=== PATIENT | female | born 1995 | race American Indian/Alaskan Native ===

== ENCOUNTER 2018-08-08 19:47 | Outpatient (CLI) | payer OTHER | END 2018-08-09 00:39 | disposition HB | LOC: OBS/DEL 19:47 | DX: O76 Abnormality in fetal heart rate and rhythm complicating labor and delivery (principal); Z34.02 Encounter for supervision of normal first pregnancy, second trimester ==

== ENCOUNTER 2018-08-19 18:51 | Outpatient (CLI) | payer OTHER ==
[2018-08-19] MEDS ORDERED: PRENATAL TABLE1 EAC1 PO (19:35)
== END 2018-08-20 11:23 | disposition home or self-care (01) ==
LOC: OBS/DEL 18:51
DX: O23.43 Unspecified infection of urinary tract in pregnancy, third trimester (principal); O47.1 False labor at or after 37 completed weeks of gestation; Z34.03 Encounter for supervision of normal first pregnancy, third trimester

== ENCOUNTER 2018-10-17 11:25 | Inpatient (IN) | payer OTHER ==
[~2018-10-17] VITALS: Ht 160 cm; Wt 54.9 kg
[~2018-10-17 11:25] MED LIST: PRENATAL TABLE1 EAC1 PO
== END 2018-10-19 13:52 | disposition home or self-care (01) | DRG 807 ==
LOC: LDR 11:25 → OB/GYN 11:25
PROVIDERS: ADMIT Obstetrics & Gynecology
PROC: 10E0XZZ Delivery of Products of Conception, External Approach (ICD-10-PCS; principal; 2018-10-17)
PROC: 4A1HXCZ Monitoring of Products of Conception, Cardiac Rate, External Approach (ICD-10-PCS; 2018-10-17)
PROC: 4A033R1 Measurement of Arterial Saturation, Peripheral, Percutaneous Approach (ICD-10-PCS; 2018-10-17)
DX: O36.5930 Maternal care for other known or suspected poor fetal growth, third trimester, not applicable or unspecified (principal); Z37.0 Single live birth; Z3A.37 37 weeks gestation of pregnancy

== ENCOUNTER 2021-08-02 22:18 | Emergency (ER) | payer OTHER ==
[~2021-08-02] VITALS: Ht 160 cm; Wt 68.9 kg
[2021-08-03] MEDS ORDERED: MUCINEX DM ER1 EAC1 PO (03:21)
[2021-08-03] MEDS ORDERED: AZITHROMYCIN500 MG PO (03:21)
[2021-08-03] MEDS ORDERED: ACETAMINOPHEN650 M2 PO (03:23)
== END 2021-08-03 03:30 | disposition home or self-care (01) ==
LOC: ER 22:18
DX: A49.3 Mycoplasma infection, unspecified site (principal); J06.9 Acute upper respiratory infection, unspecified; B34.9 Viral infection, unspecified

== ENCOUNTER → 2021-12-02 | Emergency (ER) | payer OTHER ==
[~2021-12-02] VITALS: Ht 160 cm; Wt 68.0 kg
[~2021-12-02] MED LIST changes: +ACETAMINOPHEN650 M2 PO; +AZITHROMYCIN500 MG PO; +MUCINEX DM ER1 EAC1 PO
== END | disposition left against medical advice (07) ==
LOC: ER 00:23
DX: Z53.21 Procedure and treatment not carried out due to patient leaving prior to being seen by health care provider (principal)

== ENCOUNTER 2023-03-31 11:25 | Emergency (ER) | payer OTHER ==
[~2023-03-31] VITALS: Ht 160 cm; Wt 69.9 kg
== END 2023-03-31 16:56 | disposition home or self-care (01) ==
LOC: ER 11:25
DX: J06.9 Acute upper respiratory infection, unspecified (principal); Z20.822 Contact with and (suspected) exposure to COVID-19